=== PATIENT | female | born 1975 | race Two or more races ===

== ENCOUNTER 2022-07-26 08:11 | Emergency (ER) | payer OTHER ==
[2022-07-26 08:35] VITALS: BMI 27.3
[2022-07-26] MEDS ORDERED: SODIUM CHLORIDE 1,000 ML IV STA (08:57)
[2022-07-26] MEDS ORDERED: KETOROLAC TROMETHAMINE 30 MG/1 ML VIAL IVPUSH ONE (08:57)
[2022-07-26] MEDS ORDERED: KETOROLAC TROMETHAMINE 30 MG/1 ML VIAL ONE (09:15)
[2022-07-26 09:27] LABS: BASO % 0.6 % (0-2.0); EOS % 1.2 % (0-4.5); HEMATOCRIT 35.4 % (32.4-45.2); LYMPH % 32.6 % (8-40); MEAN PLT VOLUME 9.7 fl (7.5-11.1); MONO % 6.6 % (3.8-10.2); PLATELET COUNT 237 10^3/uL (134-434); RBC 4.98 M/mm3 (3.60-5.2); RDW 18.4 % (11.6-15.6); WHITE BLOOD COUNT 6.9 K/mm3 (4.0-10.0)
[2022-07-26 09:32] LABS: HCG,QUALITATIVE URINE Negative
[2022-07-26 09:43] LABS: CHLORIDE 123 mmol/L (98-107); SODIUM 150 mmol/L (136-145)
[2022-07-26 09:43] LABS: EPI CELLS 13 /uL (0-25.1); HYALINE CASTS 1 /uL (0-3.1); PH,URINE >= 9.0 (5.0-8.0); URINE APPEARANCE CLEAR; URINE BACTERIA 234 /uL (0-1359); URINE BILIRUBIN NEGATIVE (NEGATIVE); URINE COLOR YELLOW; URINE GLUCOSE (UA) NEGATIVE (NEGATIVE); URINE KETONE NEGATIVE (NEGATIVE); URINE LEUK ESTERASE TRACE (NEGATIVE); URINE NITRITE NEGATIVE (NEGATIVE); URINE PROTEIN TRACE (NEGATIVE); URINE RBC 12 /uL (0-23.9); URINE UROBILINOGEN 0.2 mg/dL (0.2-1.0); URINE WBC 4 /uL (0-25.8)
[2022-07-26 09:46] LABS: ALBUMIN 2.4 g/dl (3.4-5.0); ANION GAP 11 MMOL/L (8-16); CO2 15 mmol/L (21-32); GLUCOSE,RANDOM 95 mg/dL (74-106)
[2022-07-26 09:49] LABS: CREATININE 0.2 mg/dL (0.55-1.3); SGOT/AST 22 U/L (15-37); SGPT/ALT 27 U/L (13-61)
[2022-07-26 09:50] LABS: BILIRUBIN,TOTAL 0.3 mg/dL (0.2-1); TOT PROT 4.6 g/dl (6.4-8.2)
[2022-07-26 09:51] LABS: ALK PHOS 51 U/L (45-117)
[2022-07-26] MEDS ORDERED: POTASSIUM CHLORIDE TABS 20 MEQ TABLET.ER (FP) PO ONE ×2 (09:51→10:03)
[2022-07-26 09:56] LABS: CALCIUM 5.8 mg/dL (8.5-10.1)
[2022-07-26] MEDS ORDERED: SODIUM CHLORIDE 0.45% 1,000 ML IV SCH (10:00)
[2022-07-26 10:28] LABS: ANISOCYTOSIS 1+; MACROCYTOSIS 0
[2022-07-26 11:37] LABS: BLOOD UREA NITROGEN 10.8 mg/dL (7-18)
[2022-07-26 11:40] LABS: CREATININE 0.6 mg/dL (0.55-1.3)
[2022-07-26 11:41] LABS: BILIRUBIN,TOTAL 0.2 mg/dL (0.2-1)
[2022-07-26 11:59] LABS: ALBUMIN 3.6 g/dl (3.4-5.0); CALCIUM 8.6 mg/dL (8.5-10.1); TOT PROT 6.9 g/dl (6.4-8.2)
[2022-07-26 12:12] VITALS: BP 124/64; PULSE 60; RESP 20; TEMP 98
== END 2022-07-26 12:15 | disposition home or self-care (01) ==
LOC: JER 08:11
PROC: 3E0333Z Introduction of Anti-inflammatory into Peripheral Vein, Percutaneous Approach (ICD-10-PCS; principal; 2022-07-26)
PROC: 3E0337Z Introduction of Electrolytic and Water Balance Substance into Peripheral Vein, Percutaneous Approach (ICD-10-PCS; 2022-07-26)
DX: R42 Dizziness and giddiness (principal); M54.2 Cervicalgia
CPT/HCPCS: 0241U-QW; 36415; 80053; 81003; 84443; 84703; 85025; 87077; 87086; 93005; 93010; 99284-25